=== PATIENT | male | born 1990 | race Caucasian/White ===

== ENCOUNTER 2021-09-24 19:08 | Emergency (ER) | payer OTHER, SELFPAY ==
[2021-09-24 19:16] VITALS: BP 167/74; PULSE 89; RESP 18; TEMP 36.9; O2SAT 98
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
== END 2021-09-24 21:31 | disposition home or self-care (01) ==
PROVIDERS: Emergency Provider Emergency Medicine
DX: S39.012A Strain of muscle, fascia and tendon of lower back, initial encounter (principal); S16.1XXA Strain of muscle, fascia and tendon at neck level, initial encounter; V89.2XXA Person injured in unspecified motor-vehicle accident, traffic, initial encounter
CPT/HCPCS: 99281